=== PATIENT | male | born 1985 | race Two or more races ===

== ENCOUNTER 2021-11-28 12:34 | Emergency (ER) | payer OTHER ==
[~2021-11-28] VITALS: Ht 175.3 cm; Wt 68.9 kg
[2021-11-28 12:34] VITALS: BP 136/90
[2021-11-28] MEDS ORDERED: HYDR-4902 PO (14:59)
[2021-11-28] MEDS ORDERED: HYDROcodone-ACET 5/325MG TAB PO ONE (15:00)
== END 2021-11-28 15:21 | disposition home or self-care (01) ==
LOC: ER 12:37
DX: M79.644 Pain in right finger(s) (principal); Z76.0 Encounter for issue of repeat prescription; Z79.899 Other long term (current) drug therapy